=== PATIENT | female | born 1960 | race Two or more races ===

== ENCOUNTER 2020-03-22 19:19 | Emergency (ER) | payer SELFPAY ==
[~2020-03-22] VITALS: Ht 160 cm; Wt 59.0 kg
[2020-03-22 19:22] VITALS: Ht 160 cm; Wt 59.0 kg
[2020-03-22 20:29] VITALS: BP 121/77
== END 2020-03-22 20:29 | disposition home or self-care (01) ==
LOC: ED 19:19
DX: U07.1 COVID-19 (principal)